=== PATIENT | female | born 1980 | race Caucasian/White ===

== ENCOUNTER 2016-10-23 21:23 | Emergency (ER) | payer BC, OTHER ==
[2016-10-23 21:24] VITALS: BMI 30.7
[2016-10-23 21:33] VITALS: O2SAT 100
[2016-10-23] MEDS ORDERED: Alum-Mag Hydrox-Simethicone Susp (30 mL) PO STA (21:55)
[2016-10-23] MEDS ORDERED: Aluminum Hydroxide/Magnesium Hydroxide Susp (30 mL) ONE (21:57)
--- NOTE | 2016-10-23 23:06 | C.PDOC ---
History Of Present Illness A 36 y/o female c/o vague left chest discomfort for 3 days. Pain is positionally reproducible but not digitally. Pt is 29 weeks and was seen by her OBGYN with her usual work up. Pt denies fever, chills, SOB, Lightheadedness, Palpitations, abdominal pain, diaphoresis, lower extremity pain , jaw pain, nausea, vomiting, dizziness, or any other complaints. Time Seen by Provider: 10/23/16 21:43 Chief Complaint (Nursing): Chest Pain History Per: Patient History/Exam Limitations: no limitations Onset/Duration Of Symptoms: Days Current Symptoms Are (Timing): Still Present Severity: Mild Associated Symptoms: denies: Diaphoresis Modifying Factors: None Exacerbating Factors: None Recent travel outside of the [place]: No Additional History Per: Patient Past Medical History Reviewed: Historical Data, Nursing Documentation, Vital Signs Vital Signs: Last Vital Signs Temp 98.5 F 10/23/16 23:10 Pulse 82 10/23/16 23:10 Resp 20 10/23/16 23:10 BP 121/78 10/23/16 23:10 Pulse Ox 100 10/23/16 23:10 Family History: States: Unknown Family Hx - Social History Hx Alcohol Use: No Hx Substance Use: No - Immunization History Hx Tetanus Toxoid Vaccination: No Hx Influenza Vaccination: No Hx Pneumococcal Vaccination: No Review Of Systems Except As Marked, All Systems Reviewed And Found Negative. Constitutional: Negative for: Fever, Chills, Sweats Cardiovascular: Positive for: Chest Pain (Vague left chest discomfort). Negative for: Palpitations, Light Headedness Gastrointestinal: Negative for: Nausea, Vomiting, Abdominal Pain Musculoskeletal: Negative for: Leg Pain, Foot Pain, Other (Jaw pain) Neurological: Negative for: Dizziness Physical Exam - Physical Exam Appears: Non-toxic, No Acute Distress Skin: Warm, Dry Head: Atraumatic, Normacephalic Eye(s): bilateral: Normal Inspection Oral Mucosa: Moist Neck: Supple Chest: Symmetrical, No Deformity, No Tenderness (No tenderness or rash beneath the left breast) Cardiovascular: Rhythm Regular Respiratory: Normal Breath Sounds, No Accessory Muscle Use, No Rales, No Rhonchi , No Wheezing Gastrointestinal/Abdominal: Soft, No Tenderness Back: Normal Inspection, No CVA Tenderness Neurological/Psych: Oriented x3, Normal Speech, Normal Cognition, Other (No focal deficit) ED Course And Treatment ECG: Interpreted By Me ECG Rhythm: Sinus Rhythm ECG Interpretation: Normal Rate From EC O2 Sat by Pulse Oximetry: 100 (RA) Pulse Ox Interpretation: Normal Progress Note: tylenol, pepcid, maalox Reevaluation Time: 23:06 Reassessment Condition: Improved Medical Decision Making Medical Decision Making: Impression: A 36 y/o female c/o vague left chest discomfort for 3 days. Plans: -EKG -Tylenol -Pepcid -Maalox -Reassess positionally reproducable "discomfort" at L lower rib area is prob GERD vs costochondritis improved with treatment above family declined w/u with informed consent. Disposition Doctor Will See Patient In The: Office Counseled Patient/Family Regarding: Studies Performed, Diagnosis - Disposition Referrals: Shahid Webb MD [Staff Provider] - Disposition: HOME/ ROUTINE Disposition Time: 23:07 Condition: GOOD Additional Instructions: GERD Pepcid 20 mg @ night to lower stomach acid and treat GERD Continue for 1 month Maalox 30 cc (one tablespoon) 4-5x/day as needed for symtoms. Costochondritis: Tylenol 650-975 mg every 6 hours as needed for L chest discomfort. Instructions: (ED), Costochondritis (ED), Gastroesophageal Reflux Disease (ED) - Clinical Impression Clinical Impression: Chest discomfort - Scribe Statement The provider has reviewed the documentation as recorded by the Scribe Junie [email or web address] All medical record entries made by the Scribe were at my direction and personally dictated by me. I have reviewed the chart and agree that the record accurately reflects my personal performance of the history, physical exam, medical decision making, and the department course for this patient. I have also personally directed, reviewed, and agree with the discharge instructions and disposition.
[2016-10-23 23:30] VITALS: BP 121/78; PULSE 82; RESP 20; TEMP 98.5
--- NOTE | 2016-10-24 10:01 | CARD ---
APPROVED REPORT EKG Measurement Heart [id number] <Conclusion> Normal sinus rhythm Normal ECG
== END 2016-10-23 23:30 | disposition home or self-care (01) ==
LOC: C.ER 21:23
DX: O26.893 Other specified pregnancy related conditions, third trimester (principal); R07.89 Other chest pain; Z3A.29 29 weeks gestation of pregnancy